=== PATIENT | female | born 1980 | race Two or more races ===

== ENCOUNTER 2018-06-28 16:02 | Emergency (ER) | payer MEDICAID ==
[~2018-06-28] VITALS: Ht 154.9 cm; Wt 54.9 kg
[2018-06-28 16:20] VITALS: BP 117/93
== END 2018-06-28 19:48 | disposition left against medical advice (07) ==
LOC: ER 16:08
DX: L02.511 Cutaneous abscess of right hand (principal); Z53.21 Procedure and treatment not carried out due to patient leaving prior to being seen by health care provider